=== PATIENT | female | born 1945 | race Hispanic/Latino ===

== ENCOUNTER 2017-05-20 09:51 | Outpatient (CLI) | payer MEDICARE ==
--- NOTE | 2017-05-20 10:51 | XRay Report ---
THORACIC SPINE RADIOGRAPHS INDICATION: Back pain. COMPARISON: None similar. FINDINGS: AP, lateral and swimmer's view to evaluate thoracic spine demonstrate mild degenerative spurring at few levels. Normal vertebral body stature. Minimal mid to lower thoracic levocurvature. Symmetric pedicles. No abnormal paraspinal density. Clear imaged lungs. Lower cervical spine degenerative changes as well. Demineralized bones. CONCLUSION: No acute thoracic spine radiographic abnormality with few degenerative changes noted, as above. Thank you for the opportunity to participate in this patient's care.
== END 2017-05-20 09:52 | disposition home or self-care (01) ==
LOC: SPVIMAG 09:51
PROVIDERS: ATTEND Internal Medicine
DX: M43.8X4 Other specified deforming dorsopathies, thoracic region (principal); M47.892 Other spondylosis, cervical region
CPT/HCPCS: 72072